=== PATIENT | male | born 1980 | race Two or more races ===

== ENCOUNTER 2019-05-28 19:49 | Inpatient (IN) | payer OTHER ==
[~2019-05-28] VITALS: Ht 167.6 cm; Wt 73.5 kg
[2019-05-28 20:21] LABS: EOSINOPHILS % (AUTO) 3.9 % (1.0-6.0); HEMATOCRIT 42.5 % (41-53); HEMOGLOBIN 14.3 g/dL (13.5-17.5); LYMPHOCYTES # (AUTO) 2.6 K/uL (1.0-4.8); LYMPHOCYTES % (AUTO) 33.7 % (22.0-44.0); MEAN CORPUSCULAR HEMOGLOBIN 29.8 pg (26.0-34.0); MEAN CORPUSCULAR HGB CONC 33.8 G/dL (31.0-37.0); MEAN CORPUSCULAR VOLUME 88 fL (80-100); MONOCYTES # (AUTO) 0.8 K/uL (0.1-1.0); NEUTROPHILS % (AUTO) 51.4 % (40.0-70.0); PLATELET COUNT (AUTO) 281 K/uL (150-450); RED BLOOD CELL COUNT(AUTO) 4.81 MIL/uL (4.50-5.90); RED CELL DISTRIBUTION WIDTH 13.1 % (11.5-14.5)
[2019-05-28 20:29] LABS: ANION GAP 7 mmol/L (8-16); CALCIUM, TOTAL 8.8 mg/dL (8.8-10.5); CARBON DIOXIDE 30 mmol/L (22-29); CHLORIDE 104 mmol/L (98-107); CREATININE 0.98 mg/dL (0.60-1.30); GLOMERULAR FILTR. RATE CALC > 60 mL/min (>60); GLUCOSE,RANDOM 162 mg/dL (70-110); POTASSIUM 4.3 mmol/L (3.5-5.1); SODIUM SERUM 141 mmol/L (136-145); UREA NITROGEN, BLOOD 16 mg/dL (7-18)
[2019-05-28] MEDS ORDERED: ACETAMINOPHEN 500 MG TABLET PO ONE (20:30)
[2019-05-28] MEDS ORDERED: PERTUSS(ACELL),DIPH,TET VAC/PF 0.5 ML VIAL IM ONE (20:30)
[2019-05-28 20:37] LABS: ALANINE AMINOTRANSFERASE 39 U/L (12-78); ALBUMIN 3.6 g/dL (3.4-5.0); ALKALINE PHOSPHATASE 60 U/L (46-116); ASPARTATE AMINOTRANSFERASE 23 U/L (15-37); BILIRUBIN,TOTAL 0.5 mg/dL (0.1-1.0); TOTAL PROTEIN, SERUM 7.2 g/dL (6.4-8.2)
[2019-05-28] MEDS ORDERED: MAGNESIUM HYDROXIDE SUSPENSION 30 ML UDCUP PO PRN (22:45)
[2019-05-28] MEDS ORDERED: IPRATROPIUM BROMIDE 0.5 MG/2.5 ML NEB SOLUTION NEB PRN (22:45)
[2019-05-28] MEDS ORDERED: PROMETHAZINE HCL 25 MG TABLET PO PRN (22:45)
[2019-05-28] MEDS ORDERED: BISACODYL 10 MG RECTAL RECTAL SUPPOSITORY PR PRN (22:45)
[2019-05-28] MEDS ORDERED: MAG HYDROX/AL HYDROX/SIMETH ES 30 ML SUSPENSION UDCUP PO PRN (22:45)
[2019-05-28] MEDS ORDERED: DICYCLOMINE HCL 10 MG CAPSULE PO PRN (22:45)
[2019-05-28] MEDS ORDERED: LOPERAMIDE HCL 2 MG/15 ML SUSPENSION UDCUP PO PRN (22:45)
[2019-05-28] MEDS ORDERED: ACETAMINOPHEN 325 MG TABLET PO PRN ×2 (22:45→23:00)
[2019-05-28] MEDS ORDERED: ONDANSETRON HCL 4 MG/2 ML VIAL IVP PRN ×2 (22:45→23:00)
[2019-05-28] MEDS ORDERED: ALBUTEROL SULFATE 2.5 MG/0.5 ML NEB SOLUTION NEB PRN (22:45)
[2019-05-28] MEDS ORDERED: 0.9% SODIUM CHLORIDE 10 ML SYRINGE IVP PRN (23:00)
[2019-05-29] VITALS: BP 112/77
[2019-05-29] MEDS: SODIUM CHLORIDE 0.45% 1,000 ML IV SCH ×2 (00:09→12:02)
[2019-05-29] MEDS: ZOLPIDEM TARTRATE 5 MG TABLET PO PRN ×2 (00:18→21:28)
[2019-05-29] MEDS: LORazepam 1 MG TABLET PO PRN ×2 (00:18→21:28)
[2019-05-29 01:43] LABS: AMPHET/METH SCREEN,URINE NEGATIVE (NEGATIVE); BARBITURATE SCREEN, URINE NEGATIVE (NEGATIVE); BENZODIAZEPINES SCREEN,URINE NEGATIVE (NEGATIVE); CANNABINOID SCREEN,URINE NEGATIVE (NEGATIVE); COCAINE SCREEN,URINE NEGATIVE (NEGATIVE); METHADONE SCREEN, URINE NEGATIVE (NEGATIVE); OPIATE SCREEN,URINE NEGATIVE (NEGATIVE)
[2019-05-29 01:54] LABS: PHENCYCLIDINE SCREEN,URINE NEGATIVE (NEGATIVE)
[2019-05-29] MEDS ORDERED: INFLUENZA VIRUS VACCINE QVS 2019-20 (3YR+)/PF 60 MCG/0.5 ML SYRINGE IM ONE (02:30)
[2019-05-29 05:25] VITALS: BP 119/66
[2019-05-29 05:32] LABS: BASOPHILS % (AUTO) 0.8 % (0.0-2.0); EOSINOPHILS % (AUTO) 3.7 % (1.0-6.0); HEMATOCRIT 40.1 % (41-53); HEMOGLOBIN 13.6 g/dL (13.5-17.5); LYMPHOCYTES # (AUTO) 2.3 K/uL (1.0-4.8); LYMPHOCYTES % (AUTO) 33.4 % (22.0-44.0); MEAN CORPUSCULAR VOLUME 88 fL (80-100); MONOCYTES # (AUTO) 0.8 K/uL (0.1-1.0); MONOCYTES % (AUTO) 10.9 % (2.0-9.0); NEUTROPHILS # (AUTO) 3.6 K/uL (1.8-7.7); NEUTROPHILS % (AUTO) 51.2 % (40.0-70.0); PLATELET COUNT (AUTO) 267 K/uL (150-450); RED BLOOD CELL COUNT(AUTO) 4.54 MIL/uL (4.50-5.90); RED CELL DISTRIBUTION WIDTH 13.3 % (11.5-14.5)
[2019-05-29 05:48] LABS: ALANINE AMINOTRANSFERASE 38 U/L (12-78); ALBUMIN 3.4 g/dL (3.4-5.0); ALKALINE PHOSPHATASE 54 U/L (46-116); ANION GAP 8 mmol/L (8-16); ASPARTATE AMINOTRANSFERASE 19 U/L (15-37); BILIRUBIN,TOTAL 0.5 mg/dL (0.1-1.0); CALCIUM, TOTAL 8.6 mg/dL (8.8-10.5); CARBON DIOXIDE 29 mmol/L (22-29); CHLORIDE 106 mmol/L (98-107); GLOMERULAR FILTR. RATE CALC > 60 mL/min (>60); GLUCOSE,RANDOM 93 mg/dL (70-110); POTASSIUM 4.2 mmol/L (3.5-5.1); SODIUM SERUM 143 mmol/L (136-145); TOTAL PROTEIN, SERUM 6.4 g/dL (6.4-8.2); UREA NITROGEN, BLOOD 12 mg/dL (7-18)
[2019-05-29 07:40] VITALS: BP 139/87
[2019-05-29] MEDS: BACLOFEN 10 MG TABLET PO PRN ×2 (08:37→22:27)
[2019-05-29] MEDS: ACETAMINOPHEN 325 MG TABLET PO PRN (08:37)
[2019-05-29] MEDS: DOCUSATE SODIUM 100 MG CAPSULE PO SCH ×2 (09:00→20:39)
[2019-05-29] MEDS: BuPROPion HCL 100 MG SR TABLET PO SCH (11:27)
[2019-05-29] MEDS: OLANZapine 10 MG RAPDIS TABLET PO SCH ×2 (11:27→20:39)
[2019-05-29 11:35] VITALS: BP 133/73
[2019-05-29 15:38] VITALS: BP 130/74
[2019-05-29 20:19] VITALS: BP_SYST 135; BP_SYST 150; BP_DIAS 76; BP_DIAS 83
[2019-05-29] MEDS: CloNIDine HCL 0.1 MG TABLET PO PRN (21:28)
[2019-05-29] MEDS: HydrOXYzine PAMOATE 50 MG CAPSULE PO PRN (21:31)
[2019-05-29] MEDS: TraZODone HCL 50 MG TABLET PO PRN (22:27)
[2019-05-30 04:00] VITALS: BP 134/83
[2019-05-30] MEDS: ACETAMINOPHEN 325 MG TABLET PO PRN (09:55)
[2019-05-30] MEDS: OLANZapine 10 MG RAPDIS TABLET PO SCH (09:55)
[2019-05-30] MEDS: DOCUSATE SODIUM 100 MG CAPSULE PO SCH ×2 (09:55→19:59)
[2019-05-30] MEDS: BuPROPion HCL 100 MG SR TABLET PO SCH (09:55)
[2019-05-30 10:12] VITALS: BP 120/78
[2019-05-30] MEDS: BACITRACIN 28.4 GM OINTMENT TP SCH (11:39)
[2019-05-30 11:48] VITALS: BP 131/81
[2019-05-30 15:37] VITALS: BP 134/77
[2019-05-30 19:34] VITALS: BP 131/83
[2019-05-30] MEDS: IBUPROFEN 600 MG TABLET PO PRN (19:58)
[2019-05-30] MEDS: ZOLPIDEM TARTRATE 5 MG TABLET PO PRN (20:23)
[2019-05-30] MEDS: TraZODone HCL 50 MG TABLET PO PRN (20:23)
[2019-05-30] MEDS: CloNIDine HCL 0.1 MG TABLET PO PRN (20:23)
[2019-05-30] MEDS: LORazepam 1 MG TABLET PO PRN (20:23)
[2019-05-31] VITALS (7 sets, daily range): BP systolic 99–132; BP diastolic 61–88
[2019-05-31] MEDS: OLANZapine 10 MG RAPDIS TABLET PO SCH ×3 (00:34→23:50)
[2019-05-31] MEDS: HydrOXYzine PAMOATE 50 MG CAPSULE PO PRN ×2 (00:34→19:58)
[2019-05-31] MEDS: BACITRACIN 28.4 GM OINTMENT TP SCH (04:26)
[2019-05-31] MEDS: DOCUSATE SODIUM 100 MG CAPSULE PO SCH ×2 (08:16→19:58)
[2019-05-31] MEDS: BuPROPion HCL 100 MG SR TABLET PO SCH (08:16)
[2019-05-31] MEDS: LORazepam 1 MG TABLET PO PRN ×3 (10:02→23:50)
[2019-05-31] MEDS: IBUPROFEN 600 MG TABLET PO PRN ×2 (16:17→19:58)
[2019-05-31] MEDS: ZOLPIDEM TARTRATE 5 MG TABLET PO PRN (19:58)
[2019-05-31] MEDS: TraZODone HCL 50 MG TABLET PO PRN (19:58)
[2019-05-31] MEDS: CloNIDine HCL 0.1 MG TABLET PO PRN (23:50)
[2019-06-01 06:38] VITALS: BP 125/87
[2019-06-01 07:52] VITALS: BP 122/82
[2019-06-01] MEDS: LORazepam 1 MG TABLET PO PRN ×3 (08:19→20:47)
[2019-06-01] MEDS: DOCUSATE SODIUM 100 MG CAPSULE PO SCH ×2 (08:19→21:28)
[2019-06-01] MEDS: OLANZapine 10 MG RAPDIS TABLET PO SCH ×2 (08:19→21:28)
[2019-06-01] MEDS: BuPROPion HCL 100 MG SR TABLET PO SCH (08:19)
[2019-06-01] MEDS: BACITRACIN 28.4 GM OINTMENT TP SCH (08:19)
[2019-06-01] MEDS: IBUPROFEN 600 MG TABLET PO PRN ×2 (08:20→14:37)
[2019-06-01 15:38] VITALS: BP 135/75
[2019-06-01 20:11] VITALS: BP 143/70
[2019-06-01 22:49] VITALS: BP 132/85
[2019-06-02] MEDS: TraZODone HCL 50 MG TABLET PO PRN (00:07)
[2019-06-02 04:00] VITALS: BP 131/80
[2019-06-02] MEDS: IBUPROFEN 600 MG TABLET PO PRN ×3 (06:59→20:13)
[2019-06-02 07:23] VITALS: BP 136/67
[2019-06-02] MEDS: BuPROPion HCL 100 MG SR TABLET PO SCH (08:22)
[2019-06-02] MEDS: DOCUSATE SODIUM 100 MG CAPSULE PO SCH ×2 (08:22→20:14)
[2019-06-02] MEDS: OLANZapine 10 MG RAPDIS TABLET PO SCH ×2 (08:22→20:14)
[2019-06-02] MEDS: BACITRACIN 28.4 GM OINTMENT TP SCH (08:23)
[2019-06-02 11:03] VITALS: BP 137/96
[2019-06-02] MEDS: LORazepam 1 MG TABLET PO PRN ×2 (11:21→22:41)
[2019-06-02 16:17] VITALS: BP 131/65
[2019-06-02 20:06] VITALS: BP 124/80
[2019-06-02] MEDS: TraZODone HCL 50 MG TABLET PO SCH (20:13)
[2019-06-02] MEDS: BACLOFEN 10 MG TABLET PO PRN (22:41)
[2019-06-03 00:41] VITALS: BP 124/96
[2019-06-03 05:42] VITALS: BP 118/90
[2019-06-03 07:54] VITALS: BP 142/88
[2019-06-03] MEDS: DOCUSATE SODIUM 100 MG CAPSULE PO SCH ×2 (09:07→20:45)
[2019-06-03] MEDS: BACITRACIN 28.4 GM OINTMENT TP SCH (09:08)
[2019-06-03] MEDS: BuPROPion HCL 100 MG SR TABLET PO SCH (09:08)
[2019-06-03] MEDS: OLANZapine 10 MG RAPDIS TABLET PO SCH ×2 (09:08→20:45)
[2019-06-03 11:24] VITALS: BP 121/96
[2019-06-03] MEDS: LORazepam 1 MG TABLET PO PRN (14:06)
[2019-06-03 15:38] VITALS: BP 145/77
[2019-06-03 19:35] VITALS: BP 135/89
[2019-06-03] MEDS: IBUPROFEN 600 MG TABLET PO PRN (20:45)
[2019-06-03] MEDS: TraZODone HCL 50 MG TABLET PO SCH (20:45)
[2019-06-04] VITALS (7 sets, daily range): BP systolic 113–138; BP diastolic 80–89
[2019-06-04] MEDS: DOCUSATE SODIUM 100 MG CAPSULE PO SCH ×2 (07:58→21:43)
[2019-06-04] MEDS: BACITRACIN 28.4 GM OINTMENT TP SCH (07:58)
[2019-06-04] MEDS: OLANZapine 10 MG RAPDIS TABLET PO SCH (07:58)
[2019-06-04] MEDS: BuPROPion HCL 100 MG SR TABLET PO SCH (07:58)
[2019-06-04] MEDS: IBUPROFEN 600 MG TABLET PO PRN (08:01)
[2019-06-04] MEDS ORDERED: OLANZapine 5 MG RAPDIS TABLET PO SCH (09:00)
[2019-06-04] MEDS ORDERED: OLANZapine 5 MG RAPDIS TABLET PO ONE (10:15)
[2019-06-04] MEDS ORDERED: IBUPROFEN 400 MG TABLET PO PRN (11:00)
[2019-06-04] MEDS: LORazepam 1 MG TABLET PO PRN (14:18)
[2019-06-04] MEDS: TraZODone HCL 50 MG TABLET PO SCH (21:42)
[2019-06-04] MEDS: OLANZapine 5 MG RAPDIS TABLET PO SCH (21:43)
[2019-06-05 04:22] VITALS: BP 130/89
[2019-06-05 08:06] VITALS: BP 147/85
[2019-06-05] MEDS: DOCUSATE SODIUM 100 MG CAPSULE PO SCH ×2 (09:12→20:44)
[2019-06-05] MEDS: BuPROPion HCL 100 MG SR TABLET PO SCH (09:12)
[2019-06-05] MEDS: OLANZapine 5 MG RAPDIS TABLET PO SCH ×2 (09:13→20:44)
[2019-06-05] MEDS: BACITRACIN 28.4 GM OINTMENT TP SCH (09:15)
[2019-06-05 11:05] VITALS: BP 125/72
[2019-06-05 15:24] VITALS: BP 135/72
[2019-06-05 19:50] VITALS: BP 132/78
[2019-06-05] MEDS: TraZODone HCL 50 MG TABLET PO SCH (20:44)
[2019-06-05 23:03] VITALS: BP 123/69
[2019-06-06 06:37] VITALS: BP 134/83
[2019-06-06 07:07] VITALS: BP 135/88
[2019-06-06] MEDS: BuPROPion HCL 100 MG SR TABLET PO SCH (09:00)
[2019-06-06] MEDS: BACITRACIN 28.4 GM OINTMENT TP SCH (09:01)
[2019-06-06] MEDS: OLANZapine 5 MG RAPDIS TABLET PO SCH ×2 (09:01→19:39)
[2019-06-06] MEDS: ACETAMINOPHEN 325 MG TABLET PO PRN (09:03)
[2019-06-06] MEDS: BACLOFEN 10 MG TABLET PO PRN (09:03)
[2019-06-06] MEDS: DOCUSATE SODIUM 100 MG CAPSULE PO SCH ×2 (09:03→19:40)
[2019-06-06 11:45] VITALS: BP 124/74
[2019-06-06 15:58] VITALS: BP 130/85
[2019-06-06] MEDS: TraZODone HCL 50 MG TABLET PO SCH (19:40)
[2019-06-06 19:50] VITALS: BP 127/77
[2019-06-07 01:44] VITALS: BP 149/83
[2019-06-07 04:48] VITALS: BP 116/58
[2019-06-07 07:43] VITALS: BP 136/78
[2019-06-07] MEDS: BuPROPion HCL 100 MG SR TABLET PO SCH (08:17)
[2019-06-07] MEDS: DOCUSATE SODIUM 100 MG CAPSULE PO SCH ×2 (08:17→20:27)
[2019-06-07] MEDS: BACITRACIN 28.4 GM OINTMENT TP SCH (08:18)
[2019-06-07] MEDS: OLANZapine 5 MG RAPDIS TABLET PO SCH ×2 (08:18→20:27)
[2019-06-07 11:17] VITALS: BP 115/50
[2019-06-07 15:16] VITALS: BP 131/75
[2019-06-07] MEDS: TraZODone HCL 50 MG TABLET PO SCH (20:27)
[2019-06-07 20:56] VITALS: BP 128/84
[2019-06-08] VITALS (7 sets, daily range): BP systolic 113–138; BP diastolic 66–97
[2019-06-08] MEDS: DOCUSATE SODIUM 100 MG CAPSULE PO SCH ×2 (08:44→20:23)
[2019-06-08] MEDS: BuPROPion HCL 100 MG SR TABLET PO SCH (08:44)
[2019-06-08] MEDS: OLANZapine 5 MG RAPDIS TABLET PO SCH ×2 (08:44→20:23)
[2019-06-08] MEDS: BACITRACIN 28.4 GM OINTMENT TP SCH (08:46)
[2019-06-08] MEDS: TraZODone HCL 50 MG TABLET PO SCH (20:23)
[2019-06-09 04:59] VITALS: BP 97/72
[2019-06-09 08:07] VITALS: BP 140/79
[2019-06-09] MEDS: BuPROPion HCL 100 MG SR TABLET PO SCH (09:55)
[2019-06-09] MEDS: DOCUSATE SODIUM 100 MG CAPSULE PO SCH (09:55)
[2019-06-09] MEDS: BACITRACIN 28.4 GM OINTMENT TP SCH (09:56)
[2019-06-09] MEDS: OLANZapine 5 MG RAPDIS TABLET PO SCH (09:56)
[2019-06-09] MEDS ORDERED: TRAZ-252 PO (11:42)
[2019-06-09] MEDS ORDERED: BUPR100SR PO (11:42)
[2019-06-09] MEDS ORDERED: OLAN7.5T2 PO (11:42)
[2019-06-09 11:56] VITALS: BP 132/81
== END 2019-06-09 14:57 | DRG 885 ==
LOC: EMS 19:50 → 6S 22:00
PROVIDERS: ADMIT Hospitalist; ATTEND Hospitalist
DX: F25.0 Schizoaffective disorder, bipolar type (principal); F25.9 Schizoaffective disorder, unspecified; F17.210 Nicotine dependence, cigarettes, uncomplicated; F11.90 Opioid use, unspecified, uncomplicated; F12.90 Cannabis use, unspecified, uncomplicated; F14.90 Cocaine use, unspecified, uncomplicated
CPT/HCPCS: 70450; 70486; 72125; 80307; 90686; 90715; 99406; G0480